=== PATIENT | male | born 2000 | race Caucasian/White ===

== ENCOUNTER 2020-06-15 16:46 | Emergency (ER) | payer MEDICAID, OTHER ==
[~2020-06-15] VITALS: Ht 185.4 cm; Wt 62.0 kg
[2020-06-15 16:51] VITALS: BP 130/88
[2020-06-15 17:59] LABS: BASOPHILS % (AUTO) 1 % (0-1); EOSINOPHILS % (AUTO) 2 % (1-7); LYMPHOCYTES % (AUTO) 29 % (22-44); MEAN CORPUSCULAR HEMOGLOBIN 28.4 pg (27.5-34.5); MEAN CORPUSCULAR HGB CONC 33.7 g/dL (33.2-36.2); MEAN PLATELET VOLUME 8.3 fL (7.4-10.4); MONOCYTES % (AUTO) 8 % (2-9); NEUTROPHILS % (AUTO) 61 % (42-75); PLATELET COUNT 268 x10^3/uL (130-400); RED BLOOD COUNT 5.54 x10^6/uL (4.38-5.82); RED CELL DISTRIBUTION WIDTH 12.9 % (9.4-14.8)
[2020-06-15 18:02] LABS: MD NO
[2020-06-15 18:11] LABS: ALBUMIN 4.2 g/dL (3.4-5.0); ANION GAP 5 mmol/L (5-15); CALCIUM 9.2 mg/dL (8.5-10.1); CHLORIDE 106 mmol/L (98-107)
[2020-06-15 18:15] LABS: ALANINE AMINOTRANSFERASE 29 U/L (12-78); ALKALINE PHOSPHATASE 78 U/L (45-117); BILIRUBIN,TOTAL 0.6 mg/dL (0.2-1.0); CREATININE 1.01 mg/dL (0.7-1.3); TOTAL PROTEIN 7.5 g/dL (6.4-8.2)
--- NOTE | 2020-06-15 18:38 | NUR ---
Pt arrives to ed for new onset of syncopal episodes and not feeling well. pt reports yesterday he fainted and does not know how long he was out. SO pts mother was concerned and asked for him to come to the ed. When pt interviewed he admits to not have been eating much the past few days. When asked why he just stated he was not hungry and forgot to eat. Pt connected to monitors. BG reyesl.
--- NOTE | 2020-06-15 18:38 | NUR ---
Pt back to room
--- NOTE | 2020-06-15 19:44 | NUR ---
Patient/Caregiver given discharge instructions and they have confirmed that they understand the instructions. Patient ambulatory with steady gait.
== END 2020-06-15 19:45 | disposition home or self-care (01) ==
LOC: ED 18:45
DX: R42 Dizziness and giddiness (principal); H53.8 Other visual disturbances; R94.31 Abnormal electrocardiogram [ECG] [EKG]; R07.9 Chest pain, unspecified
CPT/HCPCS: 36415; 71045; 80053; 82962; 85025; 93005; 99285

== ENCOUNTER 2021-01-16 17:17 | Emergency (ER) | payer MEDICAID, OTHER ==
[~2021-01-16] VITALS: Ht 180.3 cm; Wt 61.0 kg
[2021-01-16 17:26] VITALS: BP 129/84
--- NOTE | 2021-01-16 17:56 | NUR ---
supervisor tunnel heading: pt from lobby to room 3
[2021-01-16] MEDS ORDERED: BACITRACIN ZINC OINT 500U/GM, 0.9 GM ONE (18:14)
--- NOTE | 2021-01-16 18:21 | NUR ---
CAT SCRATCHES AND BITES LEFT LOWER EXTREMITY SUNDAY. EMT TO BEDSIDE CLEANING WOUNDS. NADN. SALES.
== END 2021-01-16 18:47 | disposition home or self-care (01) ==
LOC: ED 18:40
DX: S81.852A Open bite, left lower leg, initial encounter (principal); W55.01XA Bitten by cat, initial encounter; Y93.89 Activity, other specified; Y92.009 Unspecified place in unspecified non-institutional (private) residence as the place of occurrence of the external cause; Y99.8 Other external cause status
CPT/HCPCS: 99283

== ENCOUNTER 2021-02-11 09:17 | Emergency (ER) | payer MEDICAID ==
[~2021-02-11] VITALS: Ht 177.8 cm; Wt 62.4 kg
[2021-02-11 10:25] LABS: BASOPHILS % (AUTO) 1 % (0-1); EOSINOPHILS % (AUTO) 2 % (1-7); LYMPHOCYTES % (AUTO) 21 % (22-44); MD NO; MEAN CORPUSCULAR HEMOGLOBIN 28.8 pg (27.5-34.5); MEAN CORPUSCULAR HGB CONC 34.1 g/dL (33.2-36.2); MEAN PLATELET VOLUME 8.4 fL (7.4-10.4); MONOCYTES % (AUTO) 8 % (2-9); NEUTROPHILS % (AUTO) 69 % (42-75); PLATELET COUNT 217 x10^3/uL (130-400); RED BLOOD COUNT 5.34 x10^6/uL (4.38-5.82)
[2021-02-11 10:32] LABS: ALBUMIN 3.8 g/dL (3.4-5.0); ANION GAP 6 mmol/L (5-15); CALCIUM 8.4 mg/dL (8.5-10.1); CHLORIDE 110 mmol/L (98-107)
[2021-02-11 10:36] LABS: ALANINE AMINOTRANSFERASE 20 U/L (12-78); ALKALINE PHOSPHATASE 77 U/L (45-117); BILIRUBIN,TOTAL 0.4 mg/dL (0.2-1.0); CREATININE 0.81 mg/dL (0.7-1.3); TOTAL PROTEIN 6.8 g/dL (6.4-8.2)
[2021-02-11 11:33] VITALS: BP 121/74
== END 2021-02-11 11:35 | disposition home or self-care (01) ==
LOC: ED 09:48
DX: J02.8 Acute pharyngitis due to other specified organisms (principal); B97.89 Other viral agents as the cause of diseases classified elsewhere
CPT/HCPCS: 36415; 80053; 85025; 86308; 87081; 87806; 87880; 99283; G0475